=== PATIENT | female | born 1935 | race Caucasian/White ===

== ENCOUNTER 2021-12-12 13:30 | Outpatient (CLI) | payer MEDICARE, MEDICAID | END 2021-12-12 13:31 | disposition home or self-care (01) | LOC: RAD 13:30 | PROVIDERS: ATTEND Specialist | DX: R06.00 Dyspnea, unspecified (principal) | CPT/HCPCS: 71046 ==

== ENCOUNTER 2021-12-18 13:28 | Inpatient (IN) | payer MEDICARE, MEDICAID ==
[2021-12-18] MEDS ORDERED: Vancomycin 1 GM/200 ML BAG ONE (13:50)
[2021-12-18] MEDS ORDERED: Cefepime 2 GM VIAL ONE (13:50)
[2021-12-18] MEDS ORDERED: Acetaminophen 325 MG TAB ONE (13:50)
[2021-12-18 14:13] LABS: #Eosinphils 0.1 thou/uL (0.0-0.7); #Lymphocytes 0.8 thou/uL (1.20-3.40); #Monocytes 1.1 thou/uL (0.11-0.59); #Neutrophils 6.9 thou/uL (1.40-6.50); %Basophils 0.3 % (0.0-1.0); %Eosinophils 0.6 % (0.0-10.0); %Lymphocytes 9.5 % (21.0-51.0); %Neutrophils 77.6 % (42.0-75.0); Hemoglobin 10.3 g/dL (12.0-16.0); Mean Corpuscular Hemoglobin 28.9 pg (27.0-31.0); Mean Platelet Volume 7.6 fL (7.4-10.4); Platelet Count 169 thou/uL (130-400); RBC Distribution Width 14.8 % (11.5-14.5); Red Blood Cell (RBC) Count 3.58 mill/uL (4.20-5.40); White Blood Cell (WBC) Count 8.9 thou/uL (4.8-10.8)
[2021-12-18 14:47] LABS: ALT (SGPT) 9 U/L (8-55); AST (SGOT) 16 U/L (5-34); Albumin 3.8 g/dL (3.4-4.8); Alkaline Phosphatase 70 U/L (40-110); Anion Gap 15 mmol/L (10-20); BUN (Urea Nitrogen) 16 mg/dL (9.8-20.1); Bilirubin, Total 0.7 mg/dL (0.2-1.2); Calc. Creatinine Clearance 0 mL/min (70-130); Calcium 9.7 mg/dL (7.8-10.44); Carbon Dioxide 28 mmol/L (23-31); Chloride 100 mmol/L (98-107); Globulin 4.3 g/dL (2.4-3.5); Glucose 109 mg/dL (83-110); Potassium 4.4 mmol/L (3.5-5.1); Protein, Total 8.1 g/dL (5.8-8.1); Sodium 139 mmol/L (136-145)
[2021-12-18 15:59] LABS: Bacteria/HPF None Seen HPF (None Seen); Bilirubin Negative (Negative); Blood, Urine Trace (Negative); Clarity Clear (Clear); Glucose, Urine (Dipstick) Normal (Negative); Ketone, Urine Negative (Negative); Leukocyte Negative Leu/uL (Negative); Nitrite Negative (Negative); Protein, Urine (Dipstick) 20 mg/dL (Neg-Trace); Specific Gravity, Urine 1.025 (1.002-1.036); Squamous Epithelial None Seen HPF (0-3); Urobilinogen Normal mg/dL (Less than 2); WBC/HPF 0-3 HPF (0-3); pH, Urine 6.5 (5.0-9.0)
[2021-12-18 20:48] LABS: SARS-CoV-2 PCR by NAA Not Detected (NotDetected)
[2021-12-18] MEDS ORDERED: Ondansetron PF 4 MG/2 ML Vial IVP PRN (22:26)
[2021-12-18] MEDS ORDERED: Acetaminophen 325 MG TAB PO PRN (22:26)
[2021-12-18 22:39] VITALS: BMI 25.0
[2021-12-18] MEDS ORDERED: Atorvastatin Calcium 40 MG TAB PO SCH (22:45)
[2021-12-18] MEDS ORDERED: Apixaban 5 MG TAB PO SCH (23:00)
[2021-12-18] MEDS ORDERED: ALPRAZolam 1 MG TAB PO SCH (23:00)
[2021-12-18] MEDS: cefTRIAXone\\ROCEPHIN 1 GM in Sodium Chloride 0.9% 100 ML IVPB SCH (23:24)
[2021-12-18] MEDS: Dextrose 5 % And 0.9 % NaCl 1,000 ML IV SCH (23:29)
[2021-12-19 06:31] LABS: #Eosinphils 0.1 thou/uL (0.0-0.7); #Neutrophils 5.6 thou/uL (1.40-6.50); %Basophils 0.2 % (0.0-1.0); %Lymphocytes 13.6 % (21.0-51.0); %Monocytes 12.8 % (0.0-10.0); %Neutrophils 72.4 % (42.0-75.0); Hemoglobin 8.8 g/dL (12.0-16.0); Mean Corpuscular HGB CONC 30.8 g/dL (32.0-36.0); Mean Corpuscular Hemoglobin 29.3 pg (27.0-31.0); Mean Corpuscular Volume 95.1 fL (78.0-98.0); Mean Platelet Volume 7.4 fL (7.4-10.4); Platelet Count 140 thou/uL (130-400); RBC Distribution Width 14.7 % (11.5-14.5); Red Blood Cell (RBC) Count 3.01 mill/uL (4.20-5.40); White Blood Cell (WBC) Count 7.7 thou/uL (4.8-10.8)
[2021-12-19 06:50] LABS: Anion Gap 9 mmol/L (10-20); BUN (Urea Nitrogen) 11 mg/dL (9.8-20.1); Calc. Creatinine Clearance 55 mL/min (70-130); Calcium 8.7 mg/dL (7.8-10.44); Carbon Dioxide 29 mmol/L (23-31); Chloride 107 mmol/L (98-107); Glucose 122 mg/dL (83-110); Potassium 3.9 mmol/L (3.5-5.1); Sodium 141 mmol/L (136-145)
[2021-12-19] MEDS: Spironolactone 25 MG TAB PO SCH (07:58)
[2021-12-19] MEDS: Apixaban 5 MG TAB PO SCH ×2 (07:58→20:06)
[2021-12-19] MEDS: ALPRAZolam 1 MG TAB PO SCH ×3 (07:59→20:06)
[2021-12-19] MEDS: Metoprolol Tartrate 25 MG TAB PO SCH ×2 (07:59→20:05)
[2021-12-19] MEDS: Dextrose 5 % And 0.9 % NaCl 1,000 ML IV SCH (11:44)
[2021-12-19] MEDS ORDERED: Montelukast Sodium 10 mg Tablet PO SCH (14:00)
[2021-12-19] MEDS: Vancomycin 1 GM in Premix Bag 1 BAG IVPB SCH (15:38)
[2021-12-19] MEDS: Acetaminophen/Codeine 30-300mg Tablet PO PRN (15:44)
[2021-12-19] MEDS: Budesonide 0.5 MG/2 ML NEB NEB SCH (19:16)
[2021-12-19] MEDS: Atorvastatin Calcium 40 MG TAB PO SCH (20:06)
[2021-12-20] MEDS: cefTRIAXone\\ROCEPHIN 1 GM in Sodium Chloride 0.9% 100 ML IVPB SCH ×2 (00:11→23:04)
[2021-12-20] MEDS: Acetaminophen/Codeine 30-300mg Tablet PO PRN ×3 (03:40→20:40)
[2021-12-20] MEDS: Dextrose 5 % And 0.9 % NaCl 1,000 ML IV SCH ×2 (05:15→20:42)
[2021-12-20 06:51] LABS: #Eosinphils 0.2 thou/uL (0.0-0.7); #Lymphocytes 1.2 thou/uL (1.20-3.40); #Monocytes 1.1 thou/uL (0.11-0.59); #Neutrophils 5.7 thou/uL (1.40-6.50); %Basophils 0.4 % (0.0-1.0); %Lymphocytes 14.1 % (21.0-51.0); %Monocytes 13.6 % (0.0-10.0); %Neutrophils 68.9 % (42.0-75.0); Hemoglobin 8.8 g/dL (12.0-16.0); Mean Corpuscular HGB CONC 29.4 g/dL (32.0-36.0); Mean Corpuscular Hemoglobin 28.6 pg (27.0-31.0); Mean Corpuscular Volume 97.2 fL (78.0-98.0); Mean Platelet Volume 7.5 fL (7.4-10.4); Platelet Count 159 thou/uL (130-400); RBC Distribution Width 14.5 % (11.5-14.5); Red Blood Cell (RBC) Count 3.09 mill/uL (4.20-5.40); White Blood Cell (WBC) Count 8.2 thou/uL (4.8-10.8)
[2021-12-20 07:32] LABS: Hypochromia SLIGHT = 6-15 cells (100X) (0-5/hpf); MDiff Complete? YES; Platelet Morphology Comment Appears Adequate; Polychromasia SLIGHT = 2-3 cells (100X) (0-2/hpf)
[2021-12-20 08:21] LABS: Anion Gap 12 mmol/L (10-20); BUN (Urea Nitrogen) 8 mg/dL (9.8-20.1); Calc. Creatinine Clearance 63 mL/min (70-130); Calcium 8.4 mg/dL (7.8-10.44); Carbon Dioxide 24 mmol/L (23-31); Chloride 109 mmol/L (98-107); Glucose 97 mg/dL (83-110); Potassium 4.1 mmol/L (3.5-5.1); Sodium 141 mmol/L (136-145)
[2021-12-20] MEDS: Budesonide 0.5 MG/2 ML NEB NEB SCH ×2 (08:31→19:06)
[2021-12-20] MEDS: Metoprolol Tartrate 25 MG TAB PO SCH ×2 (08:38→20:36)
[2021-12-20] MEDS: Apixaban 5 MG TAB PO SCH ×2 (08:39→20:36)
[2021-12-20] MEDS: Spironolactone 25 MG TAB PO SCH (08:39)
[2021-12-20] MEDS: ALPRAZolam 1 MG TAB PO SCH ×3 (08:39→20:36)
[2021-12-20] MEDS: Montelukast Sodium 10 mg Tablet PO SCH (08:39)
[2021-12-20] MEDS ORDERED: Iopamidol 370 76% 100 ML VIAL ONE (10:34)
[2021-12-20 14:57] LABS: Vancomycin, Trough 9.9 ug/mL
[2021-12-20] MEDS ORDERED: Vancomycin 1.5 GRAM/300 ML BAG 1.5 GM in Premix Bag 1 BAG IVPB SCH (15:30)
[2021-12-20] MEDS: Vancomycin 1 GM in Premix Bag 1 BAG IVPB SCH (16:23)
[2021-12-20] MEDS: Atorvastatin Calcium 40 MG TAB PO SCH (20:36)
[2021-12-21 06:10] LABS: #Eosinphils 0.3 thou/uL (0.0-0.7); #Lymphocytes 1.4 thou/uL (1.20-3.40); #Neutrophils 5.7 thou/uL (1.40-6.50); %Basophils 0.3 % (0.0-1.0); %Eosinophils 3.4 % (0.0-10.0); %Lymphocytes 16.7 % (21.0-51.0); %Monocytes 11.8 % (0.0-10.0); %Neutrophils 67.8 % (42.0-75.0); Hemoglobin 8.7 g/dL (12.0-16.0); Mean Corpuscular HGB CONC 30.3 g/dL (32.0-36.0); Mean Corpuscular Hemoglobin 28.9 pg (27.0-31.0); Mean Corpuscular Volume 95.4 fL (78.0-98.0); Mean Platelet Volume 7.3 fL (7.4-10.4); Platelet Count 171 thou/uL (130-400); RBC Distribution Width 14.5 % (11.5-14.5); Red Blood Cell (RBC) Count 2.99 mill/uL (4.20-5.40); White Blood Cell (WBC) Count 8.4 thou/uL (4.8-10.8)
[2021-12-21 06:28] LABS: Anion Gap 8 mmol/L (10-20); BUN (Urea Nitrogen) 12 mg/dL (9.8-20.1); Calc. Creatinine Clearance 50 mL/min (70-130); Calcium 8.5 mg/dL (7.8-10.44); Carbon Dioxide 31 mmol/L (23-31); Chloride 106 mmol/L (98-107); Glucose 118 mg/dL (83-110); Potassium 3.8 mmol/L (3.5-5.1); Sodium 141 mmol/L (136-145)
[2021-12-21] MEDS: Budesonide 0.5 MG/2 ML NEB NEB SCH ×2 (07:03→19:14)
[2021-12-21] MEDS: Apixaban 5 MG TAB PO SCH ×2 (08:44→20:07)
[2021-12-21] MEDS: ALPRAZolam 1 MG TAB PO SCH ×3 (08:44→20:07)
[2021-12-21] MEDS: Montelukast Sodium 10 mg Tablet PO SCH (08:44)
[2021-12-21] MEDS: Spironolactone 25 MG TAB PO SCH (08:44)
[2021-12-21] MEDS: Cefdinir 300 MG CAP PO SCH ×2 (08:44→20:07)
[2021-12-21] MEDS: Metoprolol Tartrate 25 MG TAB PO SCH ×2 (08:45→20:07)
[2021-12-21] MEDS: Acetaminophen/Codeine 30-300mg Tablet PO PRN ×2 (09:55→20:17)
[2021-12-21] MEDS: Dextrose 5 % And 0.9 % NaCl 1,000 ML IV SCH (16:08)
[2021-12-21] MEDS: Atorvastatin Calcium 40 MG TAB PO SCH (20:07)
[2021-12-22 06:47] LABS: Anion Gap 12 mmol/L (10-20); BUN (Urea Nitrogen) 11 mg/dL (9.8-20.1); Calc. Creatinine Clearance 56 mL/min (70-130); Calcium 9.6 mg/dL (7.8-10.44); Carbon Dioxide 30 mmol/L (23-31); Chloride 105 mmol/L (98-107); Glucose 93 mg/dL (83-110); Potassium 4.4 mmol/L (3.5-5.1); Sodium 143 mmol/L (136-145)
[2021-12-22 06:50] LABS: #Eosinphils 0.3 thou/uL (0.0-0.7); #Lymphocytes 0.9 thou/uL (1.20-3.40); #Monocytes 0.7 thou/uL (0.11-0.59); #Neutrophils 4.1 thou/uL (1.40-6.50); %Basophils 0.4 % (0.0-1.0); %Eosinophils 5.6 % (0.0-10.0); %Lymphocytes 15.2 % (21.0-51.0); %Monocytes 12.2 % (0.0-10.0); %Neutrophils 66.6 % (42.0-75.0); Hemoglobin 9.3 g/dL (12.0-16.0); Mean Corpuscular HGB CONC 29.7 g/dL (32.0-36.0); Mean Corpuscular Hemoglobin 29.3 pg (27.0-31.0); Mean Corpuscular Volume 98.9 fL (78.0-98.0); Mean Platelet Volume 7.1 fL (7.4-10.4); Platelet Count 204 thou/uL (130-400); RBC Distribution Width 14.4 % (11.5-14.5); Red Blood Cell (RBC) Count 3.18 mill/uL (4.20-5.40); White Blood Cell (WBC) Count 6.1 thou/uL (4.8-10.8)
[2021-12-22] MEDS: Budesonide 0.5 MG/2 ML NEB NEB SCH (07:04)
[2021-12-22] MEDS: ALPRAZolam 1 MG TAB PO SCH ×2 (08:45→15:36)
[2021-12-22] MEDS: Cefdinir 300 MG CAP PO SCH (08:45)
[2021-12-22] MEDS: Acetaminophen/Codeine 30-300mg Tablet PO PRN ×3 (08:45→15:36)
[2021-12-22] MEDS: Montelukast Sodium 10 mg Tablet PO SCH (08:45)
[2021-12-22] MEDS: Apixaban 5 MG TAB PO SCH (08:46)
[2021-12-22] MEDS: Metoprolol Tartrate 25 MG TAB PO SCH (08:46)
[2021-12-22] MEDS: Spironolactone 25 MG TAB PO SCH (08:46)
[2021-12-22 09:14] VITALS: BP 150/81; TEMP 97.2
== END 2021-12-22 16:11 | disposition home or self-care (01) | DRG 871 ==
LOC: ERS 13:28 → T4-A 18:25
PROVIDERS: ADMIT Specialist; ATTEND Specialist
DX: A41.9 Sepsis, unspecified organism (principal); J96.01 Acute respiratory failure with hypoxia; J69.0 Pneumonitis due to inhalation of food and vomit; J44.1 Chronic obstructive pulmonary disease with (acute) exacerbation; J44.0 Chronic obstructive pulmonary disease with (acute) lower respiratory infection; Z20.822 Contact with and (suspected) exposure to COVID-19; I11.0 Hypertensive heart disease with heart failure; I50.9 Heart failure, unspecified; E78.5 Hyperlipidemia, unspecified; F41.9 Anxiety disorder, unspecified; Z96.651 Presence of right artificial knee joint; Z90.49 Acquired absence of other specified parts of digestive tract; Z99.81 Dependence on supplemental oxygen; Z85.118 Personal history of other malignant neoplasm of bronchus and lung; Z87.891 Personal history of nicotine dependence; Z88.5 Allergy status to narcotic agent; Z88.1 Allergy status to other antibiotic agents; Z79.01 Long term (current) use of anticoagulants; Z79.899 Other long term (current) drug therapy
CPT/HCPCS: 36415; 51701; 71045; 71046; 71260; 74230; 80048; 80053; 80202; 81003; 81015; 83605; 85025; 87040; 87804; 93005; 94640; 96365; 96367; J0692; J0696; J3370; J3490; J7042; J7620; J7626; Q9967; U0003; U0005

== ENCOUNTER 2022-12-30 14:48 | Emergency (ER) | payer OTHER, MEDICAID ==
[~2022-12-30 14:48] MED LIST: Iopamidol-370 76% 500 ML 1 ML ONE
[2022-12-30 15:46] LABS: #Lymphocytes 0.9 thou/uL (1.20-3.40); #Monocytes 0.5 thou/uL (0.11-0.59); #Neutrophils 7.7 thou/uL (1.40-6.50); %Basophils 0.2 % (0.0-1.0); %Eosinophils 0.5 % (0.0-10.0); %Lymphocytes 10.2 % (21.0-51.0); %Monocytes 5.5 % (0.0-10.0); %Neutrophils 83.8 % (42.0-75.0); Hemoglobin 11.5 g/dL (12.0-16.0); Mean Corpuscular HGB CONC 31.5 g/dL (32.0-36.0); Mean Corpuscular Hemoglobin 31.5 pg (27.0-31.0); Mean Platelet Volume 7.1 fL (7.4-10.4); Platelet Count 207 10x3/uL (130-400); RBC Distribution Width 11.9 % (11.5-14.5); Red Blood Cell (RBC) Count 3.65 mill/uL (4.20-5.40); White Blood Cell (WBC) Count 9.2 10x3/uL (4.8-10.8)
[2022-12-30 16:12] LABS: ALT (SGPT) 28 U/L (8-55); AST (SGOT) 28 U/L (5-34); Albumin 3.2 g/dL (3.4-4.8); Alkaline Phosphatase 164 U/L (40-110); Anion Gap 14 mmol/L (10-20); BUN (Urea Nitrogen) 15 mg/dL (9.8-20.1); Bilirubin, Total 0.5 mg/dL (0.2-1.2); Calc. Creatinine Clearance 0 mL/min (70-130); Calcium 9.9 mg/dL (7.8-10.44); Carbon Dioxide 35 mmol/L (23-31); Chloride 98 mmol/L (98-107); Estimated GFR 63; Globulin 4.5 g/dL (2.4-3.5); Glucose 97 mg/dL (83-110); Protein, Total 7.7 g/dL (5.8-8.1); Sodium 143 mmol/L (136-145)
== END 2022-12-30 20:49 | disposition home or self-care (01) ==
LOC: ERS 14:48
DX: J44.1 Chronic obstructive pulmonary disease with (acute) exacerbation (principal); I11.0 Hypertensive heart disease with heart failure; I50.9 Heart failure, unspecified; E78.5 Hyperlipidemia, unspecified; Z87.891 Personal history of nicotine dependence; Z79.82 Long term (current) use of aspirin
CPT/HCPCS: 36415; 71045; 71275; 80053; 83605; 83880; 84484; 85025; 87040; 93005; 94760; Q9967

== ENCOUNTER 2023-02-23 19:32 | Inpatient (IN) | payer OTHER, MEDICAID ==
[2023-02-23] MEDS ORDERED: Cefepime 2 GM VIAL ONE (19:52)
[2023-02-23 20:07] LABS: #Lymphocytes 0.7 thou/uL (1.20-3.40); #Monocytes 0.8 thou/uL (0.11-0.59); #Neutrophils 7.8 thou/uL (1.40-6.50); %Basophils 0.2 % (0.0-1.0); %Eosinophils 0.3 % (0.0-10.0); %Lymphocytes 7.9 % (21.0-51.0); %Neutrophils 82.6 % (42.0-75.0); Hemoglobin 13.3 g/dL (12.0-16.0); Mean Corpuscular HGB CONC 33.9 g/dL (32.0-36.0); Mean Corpuscular Hemoglobin 33.8 pg (27.0-31.0); Mean Corpuscular Volume 99.9 fl (78.0-98.0); Platelet Count 130 10x3/uL (130-400); RBC Distribution Width 12.7 % (11.5-14.5); Red Blood Cell (RBC) Count 3.94 mill/uL (4.20-5.40); White Blood Cell (WBC) Count 9.4 10x3/uL (4.8-10.8)
[2023-02-23 20:15] LABS: Bilirubin Negative (Negative); Blood, Urine Negative (Negative); Clarity Clear (Clear); Glucose, Urine (Dipstick) Normal (Negative); Ketone, Urine Negative (Negative); Leukocyte Negative Leu/uL (Negative); Nitrite Negative (Negative); Protein, Urine (Dipstick) 10 mg/dL (Neg-Trace); Specific Gravity, Urine 1.023 (1.002-1.036)
[2023-02-23 20:29] LABS: ALT (SGPT) 222 U/L (8-55); AST (SGOT) 211 U/L (5-34); Albumin 3.9 g/dL (3.4-4.8); Alkaline Phosphatase 579 U/L (40-110); Anion Gap 16 mmol/L (10-20); BUN (Urea Nitrogen) 20 mg/dL (9.8-20.1); Bilirubin, Total 0.6 mg/dL (0.2-1.2); Calc. Creatinine Clearance 0 mL/min (70-130); Calcium 10.2 mg/dL (7.8-10.44); Carbon Dioxide 33 mmol/L (23-31); Chloride 96 mmol/L (98-107); Estimated GFR 55; Globulin 4.4 g/dL (2.4-3.5); Glucose 124 mg/dL (83-110); Potassium 4.9 mmol/L (3.5-5.1); Protein, Total 8.3 g/dL (5.8-8.1); Sodium 140 mmol/L (136-145)
[2023-02-23 20:49] LABS: CKMB 1.8 ng/mL (0-6.6)
[2023-02-23] MEDS ORDERED: Acetaminophen 325 MG TAB ONE (21:08)
[2023-02-23] MEDS ORDERED: Vancomycin 1 GM/200 ML (FROZEN) BAG ONE (21:08)
[2023-02-23 21:09] LABS: SARS-CoV-2 NAA Rapid Test Not Detected (NotDetected)
[2023-02-23 23:05] LABS: Lactic Acid 0.8 mmol/L (0.5-2.2)
[2023-02-23] MEDS ORDERED: Ondansetron ODT 4 MG TAB PO PRN (23:14)
[2023-02-23] MEDS ORDERED: Ondansetron PF 4 MG/2 ML Vial IVP PRN (23:14)
[2023-02-23] MEDS ORDERED: Sodium Chloride 0.9% 1,000 ML IV SCH (23:15)
[2023-02-23] MEDS ORDERED: traMADol HCl 50 MG TAB PO SCH (23:30)
[2023-02-24 00:17] VITALS: BMI 20.7
[2023-02-24 00:53] LABS: Troponin I 0.045 ng/mL (< 0.028)
[2023-02-24] MEDS ORDERED: Sodium Chloride 0.9% 1,000 ML IV SCH (02:45)
[2023-02-24] MEDS: Cefepime 2 GM in Sodium Chloride 0.9% 100 ML IVPB SCH ×2 (08:11→19:25)
[2023-02-24] MEDS ORDERED: Vancomycin HCl 1 GM in Sodium Chloride 0.9% 250 ML 300 ML IVPB SCH (09:00)
[2023-02-24] MEDS: Acetaminophen/Codeine 30-300mg Tablet PO PRN ×2 (09:30→17:52)
[2023-02-24 11:15] LABS: Mean Corpuscular Volume 99.9 fl (78.0-98.0); RBC Distribution Width 12.7 % (11.5-14.5); Red Blood Cell (RBC) Count 3.44 mill/uL (4.20-5.40); White Blood Cell (WBC) Count 5.9 10x3/uL (4.8-10.8)
[2023-02-24 11:25] LABS: Acetaminophen Less than 10.0 mcg/mL (10.0-30.0); Anion Gap 10 mmol/L (10-20); BUN (Urea Nitrogen) 15 mg/dL (9.8-20.1); Calc. Creatinine Clearance 49 mL/min (70-130); Calcium 8.5 mg/dL (7.8-10.44); Carbon Dioxide 29 mmol/L (23-31); Chloride 103 mmol/L (98-107); Estimated GFR 80; Glucose 107 mg/dL (83-110); Magnesium 1.5 mg/dL (1.6-2.6); Sodium 138 mmol/L (136-145)
[2023-02-24 13:12] LABS: #Eosinphils 0.1 thou/uL (0.0-0.7); #Lymphocytes 0.5 thou/uL (1.20-3.40); #Monocytes 0.7 thou/uL (0.11-0.59); #Neutrophils 4.7 thou/uL (1.40-6.50); %Basophils 0.4 % (0.0-1.0); %Eosinophils 0.9 % (0.0-10.0); %Lymphocytes 8.5 % (21.0-51.0); %Monocytes 11.4 % (0.0-10.0); %Neutrophils 78.9 % (42.0-75.0); Platelet Count 104 10x3/uL (130-400); Platelet Morphology Comment Appears Decreased
[2023-02-24] MEDS: ALPRAZolam 1 MG TAB PO SCH (21:10)
[2023-02-24] MEDS: Metoprolol Tartrate 25 MG TAB PO SCH (21:10)
[2023-02-24] MEDS: Vancomycin HCl 750 MG in Sodium Chloride 0.9% 250 ML 250 ML IVPB SCH (21:11)
[2023-02-25 05:10] LABS: ALT (SGPT) 95 U/L (8-55); AST (SGOT) 57 U/L (5-34); Alkaline Phosphatase 305 U/L (40-110); Anion Gap 12 mmol/L (10-20); BUN (Urea Nitrogen) 11 mg/dL (9.8-20.1); Bilirubin, Total 0.3 mg/dL (0.2-1.2); Calc. Creatinine Clearance 49 mL/min (70-130); Carbon Dioxide 27 mmol/L (23-31); Chloride 106 mmol/L (98-107); Estimated GFR 79; Globulin 3.7 g/dL (2.4-3.5); Glucose 70 mg/dL (83-110); Potassium 4.1 mmol/L (3.5-5.1); Protein, Total 6.7 g/dL (5.8-8.1); Sodium 141 mmol/L (136-145)
[2023-02-25 05:13] LABS: Troponin I 0.022 ng/mL (< 0.028)
[2023-02-25 05:19] LABS: Band 11 % (5-11); Eosinophils 1 % (0-10); Hemoglobin 13.3 g/dL (12.0-16.0); Lymphocytes 10 % (21-51); MDiff Complete? YES; Macrocytosis SLIGHT = 6-15 cells (100X) (0-5/hpf); Mean Corpuscular HGB CONC 31.8 g/dL (32.0-36.0); Mean Corpuscular Hemoglobin 32.2 pg (27.0-31.0); Monocytes 16 % (0-10); Neutrophil 61 % (42-75); Platelet Count 101 10x3/uL (130-400); Platelet Morphology Comment Appears Decreased; RBC Distribution Width 12.8 % (11.5-14.5); Red Blood Cell (RBC) Count 4.12 mill/uL (4.20-5.40); White Blood Cell (WBC) Count 4.8 10x3/uL (4.8-10.8)
[2023-02-25 05:30] LABS: HBCM Index 0.24 S/CO (0-0.79); Hep A IgM AB Non-Reactive (NonReactive); Hep A IgM S/CO 0.23 S/CO (0-0.79); Hep B Surf Ag Non-Reactive S/CO (NonReactive); Hep C IgG Ab Non-Reactive (NonReactive); Hep C Index 0.18 S/CO (0-0.79); Hepatitis B Core IgM Abs Non-Reactive (NonReactive)
[2023-02-25] MEDS: Cefepime 2 GM in Sodium Chloride 0.9% 100 ML IVPB SCH ×2 (09:29→21:22)
[2023-02-25] MEDS: CO Q-10 CAPSULE 50 MG PO SCH (09:34)
[2023-02-25] MEDS: ALPRAZolam 1 MG TAB PO SCH ×3 (09:34→22:41)
[2023-02-25] MEDS: Spironolactone 25 MG TAB PO SCH (09:34)
[2023-02-25] MEDS: Metoprolol Tartrate 25 MG TAB PO SCH ×2 (09:34→21:22)
[2023-02-25] MEDS: Digoxin 0.125 MG TAB PO SCH (09:35)
[2023-02-25] MEDS: Cholecalciferol 1,000 UNITS (25 MCG) TAB PO SCH (10:43)
[2023-02-25] MEDS: Acetaminophen/Codeine 30-300mg Tablet PO PRN (11:03)
[2023-02-25] MEDS: Vancomycin HCl 750 MG in Sodium Chloride 0.9% 250 ML 250 ML IVPB SCH ×2 (22:02→22:41)
[2023-02-26] MEDS: Acetaminophen/Codeine 30-300mg Tablet PO PRN ×3 (00:27→23:22)
[2023-02-26 05:22] LABS: Anion Gap 11 mmol/L (10-20); BUN (Urea Nitrogen) 15 mg/dL (9.8-20.1); Calc. Creatinine Clearance 56 mL/min (70-130); Carbon Dioxide 31 mmol/L (23-31); Cardiac Risk 4.4 (Less than 4.5); Chloride 104 mmol/L (98-107); Cholesterol 132 mg/dl (< 200 Desired); Estimated GFR 86; Glucose 106 mg/dL (83-110); HDL Cholesterol 30 mg/dL (>60 Neg Risk); LDL Cholesterol, Calculated 85 mg/dL; Potassium 3.8 mmol/L (3.5-5.1); Sodium 142 mmol/L (136-145); Triglycerides 87 mg/dL (Less than 150)
[2023-02-26 05:43] LABS: Band 3 % (5-11); Eosinophils 4 % (0-10); Hemoglobin 11.6 g/dL (12.0-16.0); Lymphocytes 18 % (21-51); MDiff Complete? YES; Macrocytosis MODERATE=16-30 cells (100X) (0-5/hpf); Mean Corpuscular HGB CONC 31.4 g/dL (32.0-36.0); Mean Corpuscular Hemoglobin 31.7 pg (27.0-31.0); Mean Platelet Volume 7.7 fL (7.4-10.4); Monocytes 12 % (0-10); Neutrophil 62 % (42-75); Ovalocytes SLIGHT = 2-5 cells (100X) (0-1/hpf); Platelet Count 134 10x3/uL (130-400); Platelet Morphology Comment Appears Adequate; RBC Distribution Width 12.8 % (11.5-14.5); Red Blood Cell (RBC) Count 3.66 mill/uL (4.20-5.40); White Blood Cell (WBC) Count 5.5 10x3/uL (4.8-10.8)
[2023-02-26] MEDS: Cefepime 2 GM in Sodium Chloride 0.9% 100 ML IVPB SCH (09:22)
[2023-02-26] MEDS: Spironolactone 25 MG TAB PO SCH (09:22)
[2023-02-26] MEDS: Cholecalciferol 1,000 UNITS (25 MCG) TAB PO SCH (09:22)
[2023-02-26] MEDS: ALPRAZolam 1 MG TAB PO SCH ×3 (09:22→22:54)
[2023-02-26] MEDS: Metoprolol Tartrate 25 MG TAB PO SCH ×2 (09:23→22:54)
[2023-02-26] MEDS: Digoxin 0.125 MG TAB PO SCH (09:23)
[2023-02-26] MEDS: CO Q-10 CAPSULE 50 MG PO SCH (09:24)
[2023-02-26] MEDS: Vancomycin HCl 750 MG in Sodium Chloride 0.9% 250 ML 250 ML IVPB SCH ×2 (10:30→23:24)
[2023-02-26] MEDS: Cefepime 1 GM in Sodium Chloride 0.9% 100 ML IVPB SCH (22:44)
[2023-02-27] MEDS: Digoxin 0.125 MG TAB PO SCH (08:20)
[2023-02-27] MEDS: Metoprolol Tartrate 25 MG TAB PO SCH ×2 (08:20→21:57)
[2023-02-27] MEDS: Cholecalciferol 1,000 UNITS (25 MCG) TAB PO SCH (08:20)
[2023-02-27] MEDS: ALPRAZolam 1 MG TAB PO SCH ×3 (08:20→21:57)
[2023-02-27] MEDS: Spironolactone 25 MG TAB PO SCH (08:20)
[2023-02-27] MEDS: CO Q-10 CAPSULE 50 MG PO SCH (09:49)
[2023-02-27] MEDS: Cefepime 1 GM in Sodium Chloride 0.9% 100 ML IVPB SCH ×2 (09:49→21:45)
[2023-02-27] MEDS: Acetaminophen 325 MG TAB PO PRN ×2 (09:56→18:35)
[2023-02-27 10:19] LABS: Vancomycin, Trough 18.4 ug/mL
[2023-02-27] MEDS: Vancomycin HCl 750 MG in Sodium Chloride 0.9% 250 ML 250 ML IVPB SCH ×2 (10:52→22:23)
[2023-02-27] MEDS ORDERED: Milk Of Magnesia 30 ML UDCUP PO SCH (11:15)
[2023-02-27] MEDS: Docusate 100 MG CAP PO SCH (21:59)
[2023-02-28] MEDS: Acetaminophen 325 MG TAB PO PRN ×2 (07:39→20:52)
[2023-02-28] MEDS ORDERED: Loratadine 10 MG TAB PO SCH (08:15)
[2023-02-28] MEDS: ALPRAZolam 1 MG TAB PO SCH ×3 (08:51→20:50)
[2023-02-28] MEDS: Digoxin 0.125 MG TAB PO SCH (08:51)
[2023-02-28] MEDS: CO Q-10 CAPSULE 50 MG PO SCH (08:52)
[2023-02-28] MEDS: Docusate 100 MG CAP PO SCH ×2 (08:52→20:51)
[2023-02-28] MEDS: Metoprolol Tartrate 25 MG TAB PO SCH ×2 (08:52→20:50)
[2023-02-28] MEDS: Spironolactone 25 MG TAB PO SCH (08:52)
[2023-02-28] MEDS: Cholecalciferol 1,000 UNITS (25 MCG) TAB PO SCH (08:53)
[2023-02-28] MEDS: Cefepime 1 GM in Sodium Chloride 0.9% 100 ML IVPB SCH ×2 (08:54→20:51)
[2023-02-28] MEDS: Vancomycin HCl 750 MG in Sodium Chloride 0.9% 250 ML 250 ML IVPB SCH ×2 (10:20→23:48)
[2023-02-28] MEDS: Acetaminophen/Codeine 30-300mg Tablet PO PRN (15:20)
[2023-02-28 22:16] LABS: Vancomycin, Trough 20.5 ug/mL
[2023-03-01] MEDS: CO Q-10 CAPSULE 50 MG PO SCH (08:51)
[2023-03-01] MEDS: Cholecalciferol 1,000 UNITS (25 MCG) TAB PO SCH (08:51)
[2023-03-01] MEDS: Spironolactone 25 MG TAB PO SCH (08:51)
[2023-03-01] MEDS: Docusate 100 MG CAP PO SCH (08:51)
[2023-03-01] MEDS: Cefepime 1 GM in Sodium Chloride 0.9% 100 ML IVPB SCH (08:51)
[2023-03-01] MEDS: Metoprolol Tartrate 25 MG TAB PO SCH (08:51)
[2023-03-01] MEDS: Digoxin 0.125 MG TAB PO SCH (08:51)
[2023-03-01] MEDS: ALPRAZolam 1 MG TAB PO SCH ×2 (08:52→14:19)
[2023-03-01] MEDS ORDERED: Loratadine 10 MG TAB PO SCH (09:00)
[2023-03-01] MEDS: Vancomycin HCl 750 MG in Sodium Chloride 0.9% 250 ML 250 ML IVPB SCH (09:07)
[2023-03-01 16:08] VITALS: BP 126/66; TEMP 97.2
== END 2023-03-01 18:15 | DRG 871 ==
LOC: ERS 19:32 → 2NO 22:09
PROVIDERS: ADMIT Family Medicine; ATTEND Family Medicine
PROC: 3E03329 Introduction of Other Anti-infective into Peripheral Vein, Percutaneous Approach (ICD-10-PCS; principal; 2023-02-23)
PROC: 3E04329 Introduction of Other Anti-infective into Central Vein, Percutaneous Approach (ICD-10-PCS; 2023-02-26)
PROC: 02HV33Z Insertion of Infusion Device into Superior Vena Cava, Percutaneous Approach (ICD-10-PCS; 2023-02-26)
PROC: B5181ZA Fluoroscopy of Superior Vena Cava using Low Osmolar Contrast, Guidance (ICD-10-PCS; 2023-02-26)
PROC: B548ZZA Ultrasonography of Superior Vena Cava, Guidance (ICD-10-PCS; 2023-02-26)
DX: A41.9 Sepsis, unspecified organism (principal); L89.153 Pressure ulcer of sacral region, stage 3; I50.32 Chronic diastolic (congestive) heart failure; J96.11 Chronic respiratory failure with hypoxia; Z20.822 Contact with and (suspected) exposure to COVID-19; J44.9 Chronic obstructive pulmonary disease, unspecified; I48.91 Unspecified atrial fibrillation; I11.0 Hypertensive heart disease with heart failure; Z96.651 Presence of right artificial knee joint; R77.8 Other specified abnormalities of plasma proteins; R74.01 Elevation of levels of liver transaminase levels; D69.6 Thrombocytopenia, unspecified; L89.621 Pressure ulcer of left heel, stage 1; L89.611 Pressure ulcer of right heel, stage 1; E78.5 Hyperlipidemia, unspecified; Z88.5 Allergy status to narcotic agent; Z85.118 Personal history of other malignant neoplasm of bronchus and lung; Z90.2 Acquired absence of lung [part of]; Z88.1 Allergy status to other antibiotic agents; Z79.899 Other long term (current) drug therapy; Z79.02 Long term (current) use of antithrombotics/antiplatelets; Z99.81 Dependence on supplemental oxygen; Z90.49 Acquired absence of other specified parts of digestive tract; Z90.710 Acquired absence of both cervix and uterus; Z87.891 Personal history of nicotine dependence
CPT/HCPCS: 36415; 36416; 36569; 51701; 71045; 76705; 80048; 80053; 80061; 80074; 80143; 80202; 81003; 82553; 83036; 83605; 83735; 83880; 84484; 85025; 87040; 93005; 94640; 96361; 96365; 96367; 97139; 80307; C1751; J0692; J1650; J3370; J3370-JW; J3490; J7050; J7611